=== PATIENT | female | born 1970 | race Caucasian/White ===

== ENCOUNTER → 2017-10-12 | Outpatient (CLI) | payer MEDICARE, OTHER ==
[~2017-10-12] MED LIST: ACEASPCAF PO; ALBU90OI6 INH; AMLO5 PO; ATOM40 PO; ATOM60 PO; BACL20 PO; BUPR150ER PO; Benztropine Mesy1 MG PO; CLON1 PO; Cipro500 MG PO; DICL75ER PO; DULO30 PO; DULO60 PO; ELET40TA PO; Esgic Tablet1 EACH PO; FLUT110OIA INH; FURO20 PO; GABA300 PO; GABA400 PO; GABA600 PO; HUMALOG KW200 UNIT/1 SQ; HYDACE5325 PO; HYDCHL25 PO; HYDPAM50 PO; HYDR1TAB94 PO; IBUP600 PO; INSUASPI SC; INSULANPEN SC; KETO50 PO; LATUDA120 MG PO; LEVFLO500 PO; LOSA50 PO; METF500 PO; METO25 PO; METO25ER PO; METR500 PO; MIRT15 PO; NICO21TP TOP; Norco 5-325 Ta1 EACH PO; OLAN10 PO; OLAN5A MM; OLAN7.5 PO; OMEP20ER PO; ONDA4ODT MM; ONDA8ODT MM; POTCHL10ER PO; PRAM.5 PO; PRAZ1 PO; PRED20 PO; PROM25 PO; Percocet 5-3251 EACH PO; QUET200 PO; SERT25 PO; SIMV10 PO; SPIHYD PO; TOPI50 PO; TRAM50 PO; Zofran4 MG PO
== END | disposition home or self-care (01) ==
LOC: LAB SHORT 06:00 → LAB 06:00
DX: E11.42 Type 2 diabetes mellitus with diabetic polyneuropathy (principal)
CPT/HCPCS: 82043

== ENCOUNTER 2018-11-26 12:12 | Day surgery (SDC) | payer MEDICARE, OTHER ==
[~2018-11-26] VITALS: Ht 170.2 cm; Wt 79.1 kg
[2018-11-26] MEDS ORDERED: BUPR150T2 (13:14)
--- NOTE | 2018-11-26 13:24 | NUR ---
11/26/18 1323 Qing Rajan PATIENT HAS CHEM BG OF 79. PATIENT STATES SHE FEELS A SLIGHT AMOUNT OF NAUSEA AND THIS IS HER FIRST SYMPTOM OF LOW BLOOD SUGAR. THIS INFORMATION WAS GIVEN TO DR ANDERSON AND SHE PREPARED A BAG OF 500ML LR WITH THE AMP OF D50. ORDER WAS GIVEN TO BOLUS 100-200 CC OF THIS AND RECHECK SYMPTOMS. IV ATTACHED AND STARTED BY MYSELF. WILL MONITOR
--- NOTE | 2018-11-26 15:03 | NUR ---
11/26/18 1503 Qing Rajan O2 AT 10L VIA POM MASK
== END 2018-11-26 15:55 | disposition home or self-care (01) ==
LOC: ORSCSDS 12:12
PROVIDERS: Internal Medicine Gastroenterology
PROC: 0DBL8ZX Excision of Transverse Colon, Via Natural or Artificial Opening Endoscopic, Diagnostic (ICD-10-PCS; principal; 2018-11-26 13:30)
DX: Z12.11 Encounter for screening for malignant neoplasm of colon (principal); K57.30 Diverticulosis of large intestine without perforation or abscess without bleeding; K64.8 Other hemorrhoids; Z86.010 Personal history of colon polyps; I10 Essential (primary) hypertension; J45.909 Unspecified asthma, uncomplicated; F32.9 Major depressive disorder, single episode, unspecified; F17.210 Nicotine dependence, cigarettes, uncomplicated; E11.9 Type 2 diabetes mellitus without complications; Z79.84 Long term (current) use of oral hypoglycemic drugs; K21.9 Gastro-esophageal reflux disease without esophagitis; Z79.4 Long term (current) use of insulin; Z79.899 Other long term (current) drug therapy
CPT/HCPCS: 82947; 84703; 88305; J2704; J7120

== ENCOUNTER → 2019-03-15 | Outpatient (CLI) | payer MEDICARE ==
[~2019-03-15] MED LIST changes: +BUPR150T2
[2019-03-15 11:36] LABS: U Amphetamine Screen Not Detected; U Barbituate Screen DETECTED; U Benzodiazapine Screen Not Detected; U Buprenorphine Screen Not Detected; U Cannabinoids Screen Not Detected; U Cocaine Screen Not Detected; U Methadone Screen Not Detected; U Methamphetamine Screen Not Detected; U Opiates Screen Not Detected; U Oxycodone Screen DETECTED; U Phencyclidine Screen Not Detected; U Propoxyphene Screen Not Detected
== END ==
LOC: LAB SHORT 10:57 → LAB 10:57
PROVIDERS: Registered Nurse
DX: Z51.81 Encounter for therapeutic drug level monitoring (principal); Z79.899 Other long term (current) drug therapy
CPT/HCPCS: G0480

== ENCOUNTER → 2019-06-09 | Outpatient (CLI) | payer MEDICARE, OTHER | END | disposition home or self-care (01) | LOC: LAB 20:09 → LAB SHORT 20:09 | DX: J02.9 Acute pharyngitis, unspecified (principal) | CPT/HCPCS: 87081 ==

== ENCOUNTER → 2020-08-28 | Outpatient (CLI) | payer MEDICARE, OTHER ==
[2020-08-28 14:14] LABS: Percent Saturation 25.6 % (15.0-50.0)
== END | disposition home or self-care (01) ==
LOC: LAB 10:30 → LAB SHORT 10:30
PROVIDERS: Internal Medicine Hematology & Oncology
DX: D50.0 Iron deficiency anemia secondary to blood loss (chronic) (principal); E53.8 Deficiency of other specified B group vitamins
CPT/HCPCS: 82607; 82728; 82746; 83540; 83550

== ENCOUNTER 2020-11-14 11:01 | Day surgery (SDC) | payer MEDICARE, OTHER ==
[~2020-11-14] VITALS: Ht 170.2 cm; Wt 66.6 kg
--- NOTE | 2020-11-14 12:27 | NUR ---
11/14/20 1227 Jazmine Carcamo ACTUAL PROCEDURE CHANGED TO FLEX SIGMOIDOSCOPY PT WAS NOT CLEAN, UNABLE TO MAKE IT TO CECUM
== END 2020-11-14 12:56 | disposition home or self-care (01) ==
LOC: ORSCSDS 11:01
PROVIDERS: Internal Medicine Gastroenterology
PROC: 0DB68ZX Excision of Stomach, Via Natural or Artificial Opening Endoscopic, Diagnostic (ICD-10-PCS; principal; 2020-11-14 12:30)
PROC: 0DJD8ZZ Inspection of Lower Intestinal Tract, Via Natural or Artificial Opening Endoscopic (ICD-10-PCS; principal; 2020-11-14 12:30)
PROC: 0DB98ZX Excision of Duodenum, Via Natural or Artificial Opening Endoscopic, Diagnostic (ICD-10-PCS; principal; 2020-11-14 12:30)
DX: D50.9 Iron deficiency anemia, unspecified (principal); K44.9 Diaphragmatic hernia without obstruction or gangrene; R63.4 Abnormal weight loss; R11.2 Nausea with vomiting, unspecified; E11.9 Type 2 diabetes mellitus without complications; E07.9 Disorder of thyroid, unspecified; I10 Essential (primary) hypertension; J45.909 Unspecified asthma, uncomplicated; F32.9 Major depressive disorder, single episode, unspecified; I25.10 Atherosclerotic heart disease of native coronary artery without angina pectoris; J44.9 Chronic obstructive pulmonary disease, unspecified; F17.210 Nicotine dependence, cigarettes, uncomplicated; Z79.4 Long term (current) use of insulin; Z79.899 Other long term (current) drug therapy
CPT/HCPCS: 82947; 88305; 88342; J2704; J7120

== ENCOUNTER → 2022-03-04 | Outpatient (CLI) | payer MEDICARE, OTHER ==
[2022-03-04 12:30] LABS: Source, Urine Clean Catch
[2022-03-04 15:50] LABS: Appearance, Urine Clear (Clear); Bilirubin, Urine Neg (Neg); Blood, Urine 1+ (Neg); Color, Urine Yellow (P-Yellow); Glucose Qualitative, Urine Neg (Neg); Ketones, Urine Neg (Neg); Leukocyte Esterase, Urine Neg (Neg); Nitrite, Urine Neg (Neg); Protein, Urine Neg (Neg); Urobilinogen, Urine NORM (Normal)
[2022-03-04 16:53] LABS: Bacteria Rare /hpf; Squamous Epithelial Cells Few /hpf (Few); White Blood Cells, Urine 0-2 /hpf (0-5)
[2022-03-05 15:10] LABS: HPV 16 Negative (Negative); HPV 18 Negative (Negative); HPV OTHER HR TYPES Negative (Negative)
== END | disposition home or self-care (01) ==
LOC: LAB 12:24 → LAB SHORT 12:24
PROVIDERS: Advanced Practice Midwife
DX: Z01.419 Encounter for gynecological examination (general) (routine) without abnormal findings (principal); R30.9 Painful micturition, unspecified
CPT/HCPCS: 81001; 87624; G0123

== ENCOUNTER → 2022-09-11 | Outpatient (CLI) | payer MEDICARE, OTHER | END | disposition home or self-care (01) | LOC: LAB SHORT 16:36 | DX: L08.9 Local infection of the skin and subcutaneous tissue, unspecified (principal) | CPT/HCPCS: 87070; 87205 ==

== ENCOUNTER 2023-04-01 09:09 | Day surgery (SDC) | payer MEDICARE, OTHER ==
[2023-04-01] VITALS (24 sets, daily range): BP systolic 117–148; BP diastolic 75–98
[~2023-04-01] VITALS: Ht 170.2 cm; Wt 66.4 kg
[~2023-04-01 09:09] MED LIST changes: +AIMOVIG AU140 MG/1 M SL; +ANORO ELLIPTA1 EACH INH; +DESV50 PO; +LOVA40 PO; +METO10 PO; +METO50ER; +Nexium40 MG PO; +ONDA4; +PALI3TAB PO; +Percocet 10-321 EACH PO; +ZEBUTAL 50-3251 EA10 PO
--- NOTE | 2023-04-01 10:56 | NUR ---
04/01/23 1056 Terry Mayen HISTORY, CHART, MEDICATIONS AND ALLERGIES REVIEWED BEFORE START OF PROCEDURE. PATIENT CONFIRMS NPO STATUS AND AGREES WITH SCHEDULED PROCEDURE. 3-LEAD EKG REVIEWED WITH PHYSICIAN PRIOR TO START OF PROCEDURE. MONITOR INTACT WITH CONTINUOUS PULSE OXIMETRY,CAPNOGRAPHY, 3-LEAD EKG, INTERMITTENT BP. SUPPLEMENTAL O2 TO BE TITRATED THROUGHOUT PROCEDURE TO MAINTAIN O2 SATURATION ABOVE 90%. PATIENT DETERMINED TO BE ASA APPROPRIATE FOR PROPOFOL SEDATION PRIOR TO START OF PROCEDURE BY DR. BAIRD. Bite Block Placed. HURRICAINE SPRAY TO OROPHARYX.
--- NOTE | 2023-04-01 12:24 | NUR ---
Patient up to Ambulate independently. Gait steady. Discharge instructions reviewed with patient. Patient verbalizes understanding. Copy given to patient to take home. Patient States Post-Procedure ride home has been arranged. Discharged via wheelchair to private car for ride home.
== END 2023-04-01 12:24 | disposition home or self-care (01) ==
LOC: ORSCMMR 09:09 → ORD 10:00 → ORSCMMR 10:00
PROVIDERS: Internal Medicine Gastroenterology
PROC: 0DB68ZX Excision of Stomach, Via Natural or Artificial Opening Endoscopic, Diagnostic (ICD-10-PCS; principal; 2023-04-01 10:00)
PROC: 0DJD8ZZ Inspection of Lower Intestinal Tract, Via Natural or Artificial Opening Endoscopic (ICD-10-PCS; principal; 2023-04-01 10:00)
PROC: 0DB98ZX Excision of Duodenum, Via Natural or Artificial Opening Endoscopic, Diagnostic (ICD-10-PCS; principal; 2023-04-01 10:00)
DX: D64.9 Anemia, unspecified (principal); R10.9 Unspecified abdominal pain; K31.9 Disease of stomach and duodenum, unspecified; R11.0 Nausea; Z86.010 Personal history of colon polyps; I10 Essential (primary) hypertension; E78.00 Pure hypercholesterolemia, unspecified; F20.9 Schizophrenia, unspecified; F17.210 Nicotine dependence, cigarettes, uncomplicated; Z79.899 Other long term (current) drug therapy
CPT/HCPCS: 82947; 88305; 88341; 88342; A9270; J2250; J2704; J7120